=== PATIENT | female | born 1990 | race Caucasian/White ===

== ENCOUNTER 2025-04-10 13:44 | Emergency (ER) | payer OTHER ==
[~2025-04-10] VITALS: Ht 175.3 cm; Wt 121.8 kg
[2025-04-10] MEDS ORDERED: ETON68IM SC (13:56)
[2025-04-10 17:04] VITALS: BP 104/63; TEMP 97.6; O2SAT 99
== END 2025-04-10 17:07 | disposition left against medical advice (07) ==
LOC: M ED 13:44
DX: Z53.21 Procedure and treatment not carried out due to patient leaving prior to being seen by health care provider (principal)